=== PATIENT | female | born 1995 | race American Indian/Alaskan Native ===

== ENCOUNTER 2019-05-02 08:13 | Emergency (ER) | payer SELFPAY ==
[2019-05-02 08:22] VITALS: BP 139/80
--- NOTE | 2019-05-02 08:41 | Emergency Department Report ---
Chief Complaint: Urogenital-Female Stated Complaint: VAGINAL DISCHARGE Time Seen by Provider: 05/02/19 08:38 - HPI History of Present Illness: 23-year-old -[place] female presents to the emergency room for vaginal discharge. Patient denies any abdominal pain pelvic pain no fevers chills no nausea no vomiting. Patient denies any pain at this moment. - Exam Vital Signs: Vital Signs 05/02/19 08:20 Temperature 99.0 F Pulse Rate 81 Respiratory 16 Rate Blood Pressure 139/80 O2 Sat by Pulse 98 Oximetry Physical Exam: Patient's alert and oriented 3 nontoxic in appearance. Able to be complete sentences no acute distress. Normal gait stable movement. MSE screening note: Focused history and physical exam performed. Due to findings the following was ordered: Discussed with patient that this is considered 9 life-threatening emergency. Discussed the patient is she is at no risk for acute . Discussed the patient she can follow up before the community providers. Community resource was given to patient for assistance. ED Disposition for MSE Condition: Stable
== END 2019-05-02 08:48 | disposition left against medical advice (07) ==
LOC: ED 08:13
DX: N89.8 Other specified noninflammatory disorders of vagina (principal); Z53.21 Procedure and treatment not carried out due to patient leaving prior to being seen by health care provider